=== PATIENT | female | born 1985 | race Caucasian/White ===

== ENCOUNTER → 2016-11-14 | Emergency (ER) | payer BC ==
[~2016-11-14] VITALS: Ht 170.2 cm; Wt 52.2 kg
[~2016-11-14] MED LIST: DICYCLOMINE HCL 10 MG/5 ML UDC LIQ ONE; DICYCLOMINE HCL 10 MG/5 ML UDC LIQ PO ONE; IV LACTATED RINGERS SOLUTION 1,000 ML IV ONE; ONDANSETRON 4 MG/2 ML VIAL IV ONE; ONDANSETRON 4 MG/2 ML VIAL ONE
--- NOTE | 2016-11-14 03:17 | NUR ---
Dr. Meade at bedside for eval.
[2016-11-14 03:38] LABS: BASOPHILS % (AUTO) 0.3 % (0.0-2.0); EOSINOPHILS # (AUTO) 0.1 K/uL (0.0-0.7); EOSINOPHILS % (AUTO) 0.6 % (0.0-7.0); HEMOGLOBIN 13.5 G/DL (12.0-16.0); LYMPHOCYTES # (AUTO) 1.2 K/UL (0.8-4.8); LYMPHOCYTES % (AUTO) 12.3 % (20.5-51.5); MEAN CORPUSCULAR HEMOGLOBIN 29.4 UUG (27.0-31.0); MEAN CORPUSCULAR HGB CONC 33 g/dL (32.0-37.0); MEAN CORPUSCULAR VOLUME 89.2 FL (81.0-99.0); MONOCYTES # (AUTO) 0.7 K/UL (0.1-1.30); MONOCYTES % (AUTO) 7.6 % (0.0-11.0); NEUTROPHILS # (AUTO) 7.5 K/UL (1.8-8.9); NEUTROPHILS % (AUTO) 79.2 % (38.5-71.5); PLATELET COUNT (AUTO) 316 K/UL (150-450); WHITE BLOOD COUNT (AUTO) 9.5 K/UL (4.0-11.2)
--- NOTE | 2016-11-14 03:45 | NUR ---
Patient prescribed PO bentyl, but patient is unsure if she wants to take it at this time. ERMD aware.
[2016-11-14 03:47] LABS: BILIRUBIN,DIRECT 0.1 mg/dL (0.0-0.2); BILIRUBIN,TOTAL 0.4 mg/dL (0.2-1.0); CREATININE 0.6 mg/dL (0.6-1.3); POTASSIUM 3.7 mmol/L (3.5-5.1); TOTAL PROTEIN, SERUM 8.1 g/dL (6.4-8.2)
--- NOTE | 2016-11-14 04:15 | NUR ---
Patient discharged to home in stable conditon. Written and verbal after care instructions given. Patient verbalizes understanding of instructions. IV dc'd, saline lock taken out, catheter intact. Patient left with stable gait.
[2016-11-14 04:17] VITALS: BP 134/72
== END | disposition home or self-care (01) ==
LOC: ER 05:00
DX: A08.4 Viral intestinal infection, unspecified (principal)
CPT/HCPCS: 36415; 83690; 84703; 85025; A4663; J2405; J7120